=== PATIENT | female | born 1950 | race Asian ===

== ENCOUNTER 2017-10-06 07:19 | Day surgery (SDC) | payer BC ==
[~2017-10-06] VITALS: Ht 147.3 cm; Wt 32.7 kg
[~2017-10-06 07:19] MED LIST: MULT-503 PO; SODIUM CHLORIDE 0.9% 1000ML 1,000 ML IV ONE
[2017-10-06 07:46] VITALS: BP 122/56
[2017-10-06] MEDS ORDERED: LORA10TA45 PO (09:10)
[2017-10-06] MEDS ORDERED: PROPOFOL 10 MG/ML 20ML VIAL IV ONE (10:28)
[2017-10-06 10:29] VITALS: BP 88/42
== END 2017-10-06 11:30 | disposition home or self-care (01) ==
LOC: EDSEX 07:19 → DAH 07:19 → ENDO 07:19
PROVIDERS: ATTEND Internal Medicine Gastroenterology
DX: Z12.11 Encounter for screening for malignant neoplasm of colon (principal); Z90.710 Acquired absence of both cervix and uterus; Z88.8 Allergy status to other drugs, medicaments and biological substances
CPT/HCPCS: 45378; A4606; J2704; J7030